=== PATIENT | male | born 1960 | race Caucasian/White ===

== ENCOUNTER 2019-08-02 15:38 | Emergency (ER) | payer BC, SELFPAY ==
[2019-08-02 15:45] VITALS: BP 140/78; PULSE 78; RESP 16; TEMP 37.1; O2SAT 95
--- NOTE | 2019-08-02 15:55 | ED.URI ---
HPI - URI/Sore Throat General Chief Complaint: Upper Respiratory Infection Stated Complaint: COUGH/FEVER/CHILLS/SWEATS Time Seen by Provider: 08/02/19 15:55 Source: patient and RN notes reviewed Mode of arrival: ambulatory Limitations: no limitations History of Present Illness HPI Narrative: 59-year-old male who presents to [facility] care with complaints of headache, fever, cough, body aches since Saturday.Patient states that he has been taking Ibuprofen for his fever and body aches which he rates as a 7/10 and describes as generalized body pain. Patient denies any shortness of breath, states that cough is dry, sinus congestion and nasal drainage is also present. Patient states that he just returned from being out of town on business trip and symptoms have progressively worsened. He states that he did not take flu shot this year. MD elicited complaint: fever, cough and rhinorrhea Onset (ago): day(s) (saturday afternoon) Consistency: progressively worsening Description of mucous: clear Able to tolerate fluids by mouth: Yes Exacerbating factors: nothing Relieving factors: nothing Context: recent travel Associated symptoms: fever, chills, headache, rhinorrhea and cough Treatments prior to arrival: ibuprofen Related Data Allergies Allergy/AdvReac Type Severity Reaction Status Date / Time cephalexin Allergy Intermediate RASH Verified 08/02/19 15:48 Review of Systems Review of Systems: Narrative: CONSTITUTIONAL:Positive fever, chills, or sweats. EYES: Denies visual changes, redness, or discharge. ENT: Positive rhinorrhea, congestion,no sore throat, or otalgia. CARDIOVASCULAR: Denies chest pain, palpitations, or edema. RESPIRATORY:Positive cough denies dyspnea. GASTROINTESTINAL: Denies abdominal pain, nausea, vomiting, or diarrhea. GENITOURINARY: Denies dysuria or hematuria. SKIN: Denies rash or itching. MUSCULOSKELETAL: Denies back pain, joint pain,Body aches NEUROLOGIC: Positive headache,Denies numbness, or weakness. PSYCHIATRIC: Denies anxiety or depression. All systems reviewed & are unremarkable except as noted in HPI and below PMFSH Past Medical History Medical History (Updated 08/04/19 @ 11:15 by France Edward NP) Arthritis Surgical History Surgical History (Updated 08/04/19 @ 11:15 by France Edward NP) Previous back surgery Social History Social History (Updated 08/04/19 @ 11:15 by France Edward NP) Smoking status: Never smoker Living arrangements: with family Gender identity (if verbalized by the patient): Male Comments At time of signature, agree with nursing past medical, surgical, social and family history. There is no relevant family history pertinent to the presenting complaint Exam Narrative: Exam Narrative: GENERAL:Ill-appearing, well-nourished, and in no acute distress. HEAD: Normocephalic, atraumatic. EYES: PERRLA and EOMI. ENT: Nares red, clear rhinorrhea or epistaxis. Mucous membranes moist.T<s normal with good light reflex, throat red with no lesions, exudate or tonsil swelling, post nasal drainage noted NECK: Supple.no lymphadenopathy CHEST: Clear to auscultation. No respiratory distress.dry cough deniesany dyspna SAO2 95% on room air HEART: Regular rate and rhythm. No murmur heard. Normal peripheral pulses. ABDOMEN: Soft, nontender, nondistended, normal active bowel sounds. EXTREMITIES: Normal range of motion. No edema. SKIN: Warm, dry, no rash. NEURO: No focal deficits. Alert and oriented x3. Course Vital Signs Vital signs: Vital Signs Temperature 37.1 C 08/02/19 15:45 Pulse Rate 78 08/02/19 15:45 Respiratory Rate 16 08/02/19 15:45 Blood Pressure 140/78 08/02/19 15:45 Pulse Oximetry 95 08/02/19 15:45 Temperature 37.1 C 08/02/19 15:45 Pulse Rate 78 08/02/19 15:45 Respiratory Rate 16 08/02/19 15:45 Blood Pressure 140/78 08/02/19 15:45 Pulse Oximetry 95 08/02/19 15:45 MDM - URI/Sore Throat Differential Diagnosis Differential diagnosi
== END 2019-08-02 16:19 | disposition home or self-care (01) ==
PROVIDERS: Emergency Provider Registered Nurse; PCP Family Medicine
DX: J11.1 Influenza due to unidentified influenza virus with other respiratory manifestations (principal)
CPT/HCPCS: 87804; 99213; G0463

== ENCOUNTER 2022-04-24 10:47 | Outpatient (CLI) | payer BC, SELFPAY ==
[2022-04-24 11:09] LABS: Basophils Percent Auto 0.9 % (0.2-1.2); Eosinophils Absolute Auto 0.2 K/mm3 (0-0.3); Eosinophils Percent Auto 5.6 % (0-4.4); Hematocrit 48.2 % (42.0-52.0); Immature Granulocyte Absolute 0.02 K/mm3 (0.00-0.031); Immature Granulocyte Percent A 0.6 % (0-0.5); Lymphocytes Percent Auto 34.4 % (18.3-44.2); Mean Corpuscular HGB Conc 33.2 g/dl (32-36); Mean Corpuscular Hemoglobin 31.6 pg (26-34); Mean Corpuscular Volume 95.3 fl (80-100); Mean Platelet Volume 9.7 fl (7.4-10.4); Monocytes Absolute Auto 0.6 K/mm3 (0.1-0.6); Monocytes Percent Auto 17.8 % (2.6-8.5); Neutrophils Absolute Auto 1.3 K/mm3 (1.3-6.7); Neutrophils Percent Auto 40.7 % (45.5-73.1); Platelet Count Result 203 k/mm3 (150-375); Red Blood Count 5.06 M/mm3 (4.6-6.20); Red Cell Distribution Width 12.5 % (11.5-14.5); White Blood Count 3.2 K/mm3 (4.5-10.0)
[2022-04-24 11:23] LABS: Alanine Aminotransferase 51 U/L (6-50); Albumin Level 4.3 g/dL (3.5-5.1); Alkaline Phosphatase 79 U/L (38-126); Anion Gap 8 mmol/L (8-16); Aspartate Amino Transferase 54 U/L (17-59); Bilirubin,Total 0.7 mg/dL (0.2-1.3); Blood Urea Nitrogen 15 mg/dL (9-20); Calcium 8.7 mg/dL (8.4-10.2); Carbon Dioxide 27 mmol/L (22-30); Chloride 104 mmol/L (98-107); Cholesterol 192 mg/dL (0-200); Estimated Glomerular Filt Rate > 60; Glucose 96 mg/dL (65-110); HDL Direct 48 mg/dL; Potassium 4.4 mmol/L (3.4-5.0); Sodium 139 mmol/L (137-145); Triglycerides 131 mg/dL (<150)
[2022-04-24 11:33] LABS: LDL Cholesterol Direct 106 mg/dL
[2022-04-24 11:53] LABS: Prostate Specific Antigen 1.1 ng/mL (< OR = 4.0)
== END 2022-04-24 10:48 | disposition home or self-care (01) ==
LOC: ANHLAB 10:50
PROVIDERS: PCP Family Medicine; Visit Provider Emergency Medicine
DX: Z13.220 Encounter for screening for lipoid disorders (principal); Z12.5 Encounter for screening for malignant neoplasm of prostate; Z79.899 Other long term (current) drug therapy
CPT/HCPCS: 36415; 80053; 80061; 84153; 85025; G0103

== ENCOUNTER 2023-03-01 01:45 | Day surgery (SDC) | payer BC, SELFPAY ==
[2023-02-27 13:00] VITALS: BMI 24.6
--- NOTE | 2023-02-27 13:16 | PC.NURSE ---
Report to the Outpatient Waiting Room, entrance under the green pavilion located off [facility], at time __11:30AM on date _03/01/23 . Planned Procedure Time: __1:30PM . Time changes happen often and if your time is changed the preop area will call you the afternoon before. - You and your visitor will be asked to self-screen and do not enter if you have any COVID symptoms. - A mask is optional within the hospital at this time. Patients may have clear liquids (water, carbonated beverages, clear teas, apple juice) until 3 hours prior to surgery with a maximum of 20 ounces. - No food from midnight until time of surgery Take the following medications with a SIP of water the morning of surgery: ___NONE DO NOT STOP ANY OF YOUR OTHER PRESCRIPTION MEDICATIONS PRIOR TO SURGERY ?EXCEPT THE FOLLOWING Medications to discontinue per physician __HOLD ALL VITAMINS/SUPPLEMENTS 3 DAYS PRE-OP Date to take last dose___02/26/23 Please no make-up, nail vietnamese, hairspray, perfume, deodorant, or body powder the day of surgery. No jewelry (including any body piercings) or valuables the day of surgery, leave them at home. Please take a shower or bath the night before, or the morning of, surgery with an antibacterial soap. Wear comfortable, loose fitting clothing. Children are encouraged to wear pajamas. - Jewelry must be removed prior to entering the operating room. Rings and piercings that are not removed may be cut off. - The hospital will not accept responsibility for valuables. - Please leave all valuables, including medications, at home the day of surgery. If you are going home after surgery, a licensed route sales driver must drive you home. - NO public transportation without another adult if you receive anesthesia. - We recommend that an adult stay with you for 24 hours following discharge. - We also recommend that you do not drive, make important decision, drink alcoholic beverages, or take any drugs that were not prescribed by your health care provider for at least 24 hours after your discharge time. Follow any additional instructions given to you from your surgeon. If you or anyone in your household have experienced Covid symptoms in the past week, please notify your surgeon or the nurse liaison at the phone number below for possible testing. Telephone instructions given to __PATIENT and asked if any additional questions and then verbalized understanding. Patient advised to call surgeon office or pre surgery nurse liaison [phone] if any additional questions.
--- NOTE | 2023-02-28 09:57 | P.PNAN_ITS ---
Anes - Initial Pre Proc Eval Procedure: Operation Date: 03/01/23 13:30 Proposed Procedures p Jas Modification of Pb Right Foot - Se Roldan DPM Date/Time: 02/28/23 09:57 Surgeon: Se Roldan DPM Pre Op Diagnosis: Hallux Valgus Right Foot Patient Data Age: 62 Gender: M Height: 1.78 m Weight: 78 kg Allergies Allergy/AdvReac Type Severity Reaction Status Date / Time cephalexin Allergy Intermediate RASH Verified 03/01/23 12:23 Home Medications Medication Instructions Recorded Confirmed Type cholecalciferol (vitamin D3) 50 50 mcg PO DAILY 02/27/23 02/27/23 History mcg (2,000 unit) capsule potassium 99 mg tablet 99 mg PO DAILY 02/27/23 02/27/23 History Patient hx anesthesia problems: none Family hx anesthesia problems: none Results Review: All pre-operative results and documents have been reviewed as part of the pre- operative evaluation. [facility] Past Medical History Medical History Arthritis Surgical History Surgical History Previous back surgery Social History Social History Smoking status: Never smoker Alcohol intake: current Drinks per week: 6 Substance use: never Living arrangements: with family Additional living arrangements comments: Gender identity (if verbalized by the patient): Male Spiritual care concerns: No Anes - Eval Final PreProcedure Day of Procedure 02/28/23 09:57 Patient weight: normal Heart: regular rate and rhythm Lungs: clear to auscultation and normal air movement Airway: Mallampati scale class II Neurological: alert and oriented Last oral intake: >/= 8 hours ASA classification: II Emergent: no Anesthetic plan: proceed Anesthesia type and monitoring: general GIVS and standard monitoring Results Review: All pre-operative results and documents have been reviewed as part of the pre- operative evaluation. Informed Consent: The patient's anesthetic plan and its attendant risks and benefits were discusse d with the patient/family/POA. Questions were solicited and answers provided to the satisfaction of the patient/family/POA.
[2023-03-01] VITALS (10 sets, daily range): BP systolic 119–145; BP diastolic 83–95; PULSE 50–98; RESP 12–18; TEMP 36.4–36.6; O2SAT 97–100
--- NOTE | 2023-03-01 11:39 | PM.IMHP ---
H&P: HPI History of Present Illness Date/Time: 03/01/23 11:39 Chief Complaint: Patient presents with painful right first MPJ that has failed conservative treatment. Review of Systems Review of Systems: All systems reviewed & are unremarkable except as noted in HPI and below PMFSH Past Medical History Medical History Arthritis Surgical History Surgical History Previous back surgery Social History Social History Smoking status: Never smoker Alcohol intake: current Drinks per week: 6 Substance use: never Living arrangements: with family Additional living arrangements comments: Gender identity (if verbalized by the patient): Male Spiritual care concerns: No Meds Home Medications and Allergies Home Medications Medication Instructions Recorded Confirmed Type cholecalciferol (vitamin D3) 50 50 mcg PO DAILY 02/27/23 02/27/23 History mcg (2,000 unit) capsule potassium 99 mg tablet 99 mg PO DAILY 02/27/23 02/27/23 History Allergies Allergy/AdvReac Type Severity Reaction Status Date / Time cephalexin Allergy Intermediate RASH Verified 02/27/23 12:57 Exam Const: General: cooperative, healthy appearing, comfortable and no acute distress Cardio: Peripheral pulses: Peripheral pulses 2+ throughout Extrem: General: normal exam except as noted Right lower extremity: full ROM (decreased ROM at the right 1st MPJ), normal capillary refill and foot Details: abnormal ROM of toe (right 1st MPJ) Details: pain with passive ROM Assessment and Plan Assessment and plan (1) Hallux limitus of right foot: Code(s): M20.5X1 - Other deformities of toe(s) (acquired), right foot Status: Acute Assessment and Plan: [place] procedure right foot.
--- NOTE | 2023-03-01 12:08 | WPDHPUPDATE1 ---
History and Physical Update Update Date/Time: 03/01/23 12:08 History and Physical has been reviewed, including an updated exam of the patient. There are NO changes in the patient's condition. Risks, benefits, and alternatives have been discussed and questions answered. Patient agrees to proceed with procedure.
[2023-03-01] MEDS: LACTATED RINGERS 1,000 ML 30 ML IV CONT (12:23)
[2023-03-01] MEDS: CLINDAMYCIN 900 MG/D5W 50 ML 900 MG/50 ML PIGGYBACK 50 MG IVPB (13:18)
[2023-03-01] MEDS: BUPivacaine HCL 0.5% PF 30 ML VIAL 10 ML INFILTRATE (13:39)
--- NOTE | 2023-03-01 14:13 | P.OP_ITS ---
Procedure Note - Detailed Date of Procedure 03/01/23 Pre-op Diagnosis Hallux Valgus Right Foot Post-op Diagnosis Same Procedure Performed [facility] Surgeon Se Roldan DPM Practice Specialist None Anesthesia General Description of Procedure Under monitored sedation patient was brought into the operating room, placed on the operating table. Following MAC anesthesia local anesthesia was obtained around the 1 st metatarsal base using 2% Lidocaine plain and 0.5% Marcaine plain. The foot was then scrubbed, prepped, and draped in the usual aseptic manner. Esmark bandage was used to exsanguinate the patient?s left foot and the ankle tourniquet inflated to 250mm. Attention was then directed to the dorsal aspect of the 1 st metatarsal cunieform jont of the left foot where a linear incision was made medial to the extensor tendon. It was deepened down to the level of the bone using sharp and blunt dissection with great care taken to identify and retract all vital, neural and vascular structures. A linear capsulotomy was made and the head of the exostosis was freed of its soft tissue attachments. The eminence was resected using bone saw. A osteotomy was made from dorsal distal to proximal plantar. It was fixated with a [employer] easy clip staple. It was tested and noted to be stable Rough edges were removed with the bone bur. Wound was then flushed with copious amounts of sterile normal saline. Capsule and deep tissue were repaired using 3-0 vicryl, the skin was repaired using 4-0 nylon. The wounds were then covered with a dry, sterile compressive dressing consisting of Steristrips, antibiotic ointment, Adaptic, 4 x 4?s, Cesar and Coban. The ankle tourniquet was deflated and prompt capillary refill response noted to all digits of the right foot. Patient tolerated procedure and anesthesia well. He was transferred to the recovery room with vital signs stable and neurovascular status intact to all digits of the right foot. Following a period of post-operative monitoring the patient will be discharged home with written and oral post-operative instructions. Drains No Packing No Pathology None sent Complications No immediate complications Condition Stable Disposition PACU
== END 2023-03-01 16:19 | disposition home or self-care (01) ==
PROVIDERS: PCP Emergency Medicine; Visit Provider Podiatrist Foot & Ankle Surgery
PROC: (CPT 28299; principal; 2023-03-01 13:30)
DX: M20.5X1 Other deformities of toe(s) (acquired), right foot (principal)
CPT/HCPCS: 28296; A9270; C1713; J1100; J2250; J2405; J2704; J3010; J7120

== ENCOUNTER 2024-01-16 12:12 | Outpatient (CLI) | payer BC, SELFPAY ==
[2024-01-16 12:36] LABS: Basophils Absolute Auto 0.1 K/mm3 (0.0-0.1); Basophils Percent Auto 0.9 % (0.2-1.2); Eosinophils Absolute Auto 0.2 K/mm3 (0-0.3); Hematocrit 50.8 % (42.0-52.0); Hemoglobin 17.1 g/dL (14.0-18.0); Immature Granulocyte Absolute 0.02 K/mm3 (0.00-0.031); Immature Granulocyte Percent A 0.4 % (0-0.5); Lymphocytes Absolute Auto 1.33 K/mm3 (0.9-3.2); Mean Corpuscular HGB Conc 33.7 g/dl (32-36); Mean Corpuscular Hemoglobin 31.5 pg (26-34); Mean Corpuscular Volume 93.6 fl (80-100); Mean Platelet Volume 9.8 fl (7.4-10.4); Monocytes Absolute Auto 0.8 K/mm3 (0.1-0.6); Monocytes Percent Auto 14.5 % (2.6-8.5); Neutrophils Percent Auto 56.2 % (45.5-73.1); Platelet Count Result 200 k/mm3 (150-375); Red Blood Count 5.43 M/mm3 (4.6-6.20); Red Cell Distribution Width 12.3 % (11.5-14.5); White Blood Count 5.3 K/mm3 (4.5-10.0)
[2024-01-16 12:48] LABS: Alanine Aminotransferase 52 U/L (6-50); Albumin Level 4.5 g/dL (3.5-5.1); Alkaline Phosphatase 69 U/L (38-126); Anion Gap 11 mmol/L (4-12); Aspartate Amino Transferase 43 U/L (17-59); Blood Urea Nitrogen 22 mg/dL (9-20); Calcium 9.1 mg/dL (8.4-10.2); Carbon Dioxide 24 mmol/L (22-30); Chloride 101 mmol/L (98-107); Cholesterol 224 mg/dL (0-200); Estimated Glomerular Filt Rate > 60; Glucose 102 mg/dL (65-110); HDL Direct 48 mg/dL; Potassium 4.3 mmol/L (3.4-5.0); Sodium 136 mmol/L (137-145); Triglycerides 251 mg/dL (<150)
[2024-01-16 12:59] LABS: LDL Cholesterol Direct 138 mg/dL
[2024-01-16 13:17] LABS: Prostate Specific Antigen 1.2 ng/mL (< OR = 4.0)
== END 2024-01-16 12:13 | disposition home or self-care (01) ==
LOC: ANHLAB 12:16
PROVIDERS: PCP Emergency Medicine; Visit Provider Emergency Medicine
DX: Z12.5 Encounter for screening for malignant neoplasm of prostate (principal); Z13.220 Encounter for screening for lipoid disorders; Z79.899 Other long term (current) drug therapy
CPT/HCPCS: 36415; 80053; 80061; 84153; 85025; G0103

== ENCOUNTER 2024-06-01 00:13 | Day surgery (SDC) | payer BC, SELFPAY ==
[2024-05-14 14:48] VITALS: BMI 24.4
[2024-06-01 09:01] VITALS: BP 127/85; PULSE 75; RESP 16; TEMP 35.7; O2SAT 99; BMI 23.2
[2024-06-01] MEDS: LACTATED RINGERS 1,000 ML 150 ML IV CONT (09:09)
--- NOTE | 2024-06-01 09:30 | WPDANESEPPF ---
Anes - Initial Pre Proc Eval Procedure: Operation Date: 06/01/24 10:00 Proposed Procedures p Colonoscopy - Denilson Serrano MD Date/Time: 06/01/24 09:30 Surgeon: Denilson Serrano MD Pre Op Diagnosis: Personal Hx. of colon Polyps Patient Data Age: 63 Gender: M Height: 1.78 m Weight: 73.5 kg Last Vital Signs Temp 35.7 C L 06/01/24 09:01 Pulse 75 06/01/24 09:01 Resp 16 06/01/24 09:01 BP 127/85 06/01/24 09:01 Pulse Ox 99 06/01/24 09:01 O2 Del Method Room Air 06/01/24 09:01 Allergies Allergy/AdvReac Type Severity Reaction Status Date / Time cephalexin Allergy Intermediate RASH Verified 06/01/24 09:00 Home Medications Medication Instructions Recorded Confirmed Type No Home Medications 05/14/24 05/14/24 History Patient hx anesthesia problems: none Family hx anesthesia problems: none Results Review: All pre-operative results and documents have been reviewed as part of the pre-operative evaluation. [facility] Past Medical History Medical History Arthritis Surgical History Surgical History Previous back surgery Social History Social History Smoking status: Former smoker Alcohol intake: current Drinks per week: 6 Alcohol use details: BEER Substance use: never Substance use type: does not use Living arrangements: with family Additional living arrangements comments: Gender identity (if verbalized by the patient): Male Spiritual care concerns: No Anes - Eval Final PreProcedure Day of Procedure 06/01/24 09:30 Patient weight: normal Heart: regular rate and rhythm Lungs: clear to auscultation Airway: Mallampati scale class II Neurological: alert and oriented Last oral intake: >/= 8 hours ASA classification: II Emergent: no Anesthetic plan: proceed Anesthesia type and monitoring: general GIVS and standard monitoring Results Review: All pre-operative results and documents have been reviewed as part of the pre-operative evaluation. Informed Consent: The patient's anesthetic plan and its attendant risks and benefits were discussed with the patient/family/POA. Questions were solicited and answers provided to the satisfaction of the patient/family/POA.
--- NOTE | 2024-06-01 09:35 | PM.HPGS ---
History of Present Illness History of Present Illness Consent: Risks, benefits, and alternatives have been discussed and questions answered. Patient agrees to proceed with procedure. Chief complaint: Personal Hx. of colon Polyps Narrative: Hima Interiano is a 63 year old male with colon polyp 5 years ago Review of Systems Review of Systems: All systems reviewed & are unremarkable except as noted in HPI and below PMFSH Past Medical History Medical History (Updated 06/01/24 @ 09:38 by Denilson Serrano MD) Arthritis Colon polyp Surgical History Surgical History Previous back surgery Social History Social History Smoking status: Former smoker Alcohol intake: current Drinks per week: 6 Alcohol use details: BEER Substance use: never Substance use type: does not use Living arrangements: with family Additional living arrangements comments: Gender identity (if verbalized by the patient): Male Spiritual care concerns: No Meds Home Medications and Allergies Home Medications Medication Instructions Recorded Confirmed Type No Home Medications 05/14/24 05/14/24 History Allergies Allergy/AdvReac Type Severity Reaction Status Date / Time cephalexin Allergy Intermediate RASH Verified 06/01/24 09:00 Vital Signs Vital Signs - 24 hr 06/01/24 09:01 Temperature 96.2 F L Pulse Rate 75 Respiratory Rate 16 Blood Pressure 127/85 Pulse Oximetry 99 Oxygen Delivery Room Air Exam Const: General: comfortable and no acute distress HENMT: Face/Nose/Sinus: Normal nares present Eyes: General: appearance normal, both eyes and all related structures Neck: Neck: no JVD Resp: Auscultation: clear to auscultation bilaterally Cardio: Rate: regular rate Rhythm: regular rhythm GI: Inspection: non-distended GI Palp: Yes Soft to palpation Skin: General skin exam: normal color Neuro: General: gait normal Speech: normal speech Extrem: General: normal to inspection Psych: Mental Status: mental status grossly normal Assessment and Plan Assessment and plan (1) Colon polyp: Code(s): K63.5 - Polyp of colon Status: Acute Assessment and Plan: colonoscopy
[2024-06-01 09:51] VITALS: BP 127/79; PULSE 65; RESP 17; O2SAT 100
[2024-06-01 10:01] VITALS: BP 139/106; PULSE 58; RESP 17; O2SAT 100
[2024-06-01 10:11] VITALS: BP 147/95; PULSE 53; RESP 18; O2SAT 100
== END 2024-06-01 10:26 | disposition home or self-care (01) ==
PROVIDERS: PCP Emergency Medicine; Visit Provider Internal Medicine Gastroenterology
PROC: 0DJD8ZZ Inspection of Lower Intestinal Tract, Via Natural or Artificial Opening Endoscopic (ICD-10-PCS; CPT 45378; principal; 2024-06-01 10:00)
DX: Z12.11 Encounter for screening for malignant neoplasm of colon (principal); D12.3 Benign neoplasm of transverse colon; K63.5 Polyp of colon; K57.30 Diverticulosis of large intestine without perforation or abscess without bleeding; K64.8 Other hemorrhoids
CPT/HCPCS: 45385; 88305; J2003; J2704; J7120

== ENCOUNTER 2025-02-26 07:26 | Outpatient (CLI) | payer BC, SELFPAY ==
[2025-02-26 08:43] LABS: Hematocrit 51.4 % (42.0-52.0); Hemoglobin 16.9 g/dL (14.0-18.0); Immature Granulocyte Percent A 0.6 % (0-0.5); Lymphocytes Absolute Auto 1.31 K/mm3 (0.9-3.2); Mean Corpuscular HGB Conc 32.9 g/dl (32-36); Mean Corpuscular Hemoglobin 30.6 pg (26-34); Mean Corpuscular Volume 93.1 fl (80-100); Nucleated Red Blood Cells Absolute Auto 0.000 K/mm3 (0.0-0.012); Nucleated Red Blood Cells Perc 0.0 % (0.0-0.2); Platelet Count Result 210 k/mm3 (150-375); Red Blood Count 5.52 M/mm3 (4.6-6.20); White Blood Count 4.9 K/mm3 (4.5-10.0)
[2025-02-26 09:07] LABS: Alanine Aminotransferase 47 U/L (6-50); Albumin Level 4.2 g/dL (3.5-5.1); Alkaline Phosphatase 63 U/L (38-126); Anion Gap 9 mmol/L (4-12); Aspartate Amino Transferase 48 U/L (17-59); Bilirubin,Total 0.8 mg/dL (0.2-1.3); Blood Urea Nitrogen 18 mg/dL (9-20); Calcium 9.0 mg/dL (8.4-10.2); Carbon Dioxide 24 mmol/L (22-30); Chloride 105 mmol/L (98-107); Cholesterol 239 mg/dL (0-200); Estimated Glomerular Filt Rate > 60; Glucose 98 mg/dL (65-110); HDL Direct 46 mg/dL; Potassium 4.0 mmol/L (3.4-5.0); Sodium 138 mmol/L (137-145); Total Protein 6.9 g/dL (6.3-8.2); Triglycerides 129 mg/dL (<150)
[2025-02-26 09:43] LABS: Prostate Specific Antigen 0.9 ng/mL (< OR = 4.0)
== END 2025-02-26 07:27 | disposition home or self-care (01) ==
LOC: ANHLAB 07:29
PROVIDERS: PCP Physician Assistant; Visit Provider Physician Assistant
DX: Z00.00 Encounter for general adult medical examination without abnormal findings (principal); E78.2 Mixed hyperlipidemia; Z12.5 Encounter for screening for malignant neoplasm of prostate
CPT/HCPCS: 36415; 80053; 80061; 84153; 85025; G0103

== ENCOUNTER 2025-03-02 15:24 | Outpatient (CLI) | payer BC, SELFPAY ==
--- NOTE | ~2025-03-02 | XR_ITS ---
EXAM/ PROCEDURE: XR hip BI 2V w AP pelvis - 03/02/2025 15:32 CDT HISTORY: 64 years old Male with Myalgia, other site COMPARISON: None available TECHNIQUE: Three view(s) FINDINGS/ IMPRESSION: There are no fractures or dislocations.Joint space narrowing, subchondral sclerosis, subchondral cyst formation and osteophyte formation, compatible with mild osteoarthritis. Partially visualized posterior spinal fusion hardware. Reviewed, dictated and finalized at location N. ADDENDUM: 03/16/25 1148 Mild osteoarthritis of both hip joints.
== END 2025-03-02 15:25 | disposition home or self-care (01) ==
LOC: MICIMG 15:26
PROVIDERS: PCP Physician Assistant; Visit Provider Physician Assistant
DX: M79.10 Myalgia, unspecified site (principal); Z98.1 Arthrodesis status
CPT/HCPCS: 73521

== ENCOUNTER 2025-05-26 09:28 | Outpatient (CLI) | payer BC, SELFPAY ==
--- OUTSIDE RECORDS SUMMARY | 2025-05-26 10:08 | XMS_ITS | Clinical Summary ---
Author Organization [facility] Address [address] [place] [address] Care Team Providers Care Car Icer Name Role Phone Loida Chun MD Primary Care Provider [phone] Allergies Active Allergy Reactions Criticality Noted Date Comments Cephalexin Rash Medium 05/29/2018 Medications clobetasol (TEMOVATE) 0.05 % cream Apply 1 application topically as needed. Active cholecalciferol , vitamin D3, (VITAMIN D3 ORAL) Take by mouth daily Active Active Problems Problem Noted Date Diagnosed Date S/P lumbar spinal fusion 07/29/2018 Assessment & Plan (07/12/2021 2:10 PM PAY AGENT): Mr. Interiano is clinically doing well after L4-5 decompression and fusion without any significant back pain or leg symptoms. He had some loosening the hardware at L5 which seems to the have filled than on the current x-ray. He is 3 years out his fusion. We will discharge him from clinic, but I would be happy to see him back at any point on an as-needed basis if questions or problems arise. Assessment & Plan (08/17/2020 2:43 PM PAY AGENT): Mr. Interiano has mild recurrent symptoms following a injury. He is improving with conservative treatments. He has some residual spondylolisthesis at L4-5 and adjacent level disc space collapse at L3-4. Will continue to observe. He will continue his daily exercises and discussed activities he should avoid including heavy lifting/pushing. Patient has an appointment in a year's time and will re- evaluate then. Assessment & Plan (07/19/2020 4:17 PM PAY AGENT): Mr. Interiano is clinically doing well after posterior lumbar decompression and fusion at L4-5. He has some residual spondylolisthesis at this level. I plan to see him back in 1 year's time with AP and flexion-extension lumbar spine films at that time. If he has no instability, hardware loosening or symptoms then I will discharge him from clinic at that time. Assessment & Plan (07/14/2019 2:10 PM PAY AGENT): Mr. Interiano is clinically doing well after lumbar decompression and fusion at L4-5. He has no back pain or radicular symptoms. He does not have of solid fusion posterolateral recesses but has no loosening of the hardware. He may be developing an interbody fusion at L4-5. I plan to see him back in one year's time with AP and lateral lumbar spine films at that time. He will resume all of his normal activities. He is considering a trip to [place] the spring. Assessment & Plan (09/02/2018 12:16 PM PAY AGENT): The patient is doing very well overall. The patient feels good and is pleased with his results. PLAN: 1. After 6 weeks, start increasing activity as tolerated. Start home exercise program 2. May start to wean off back brace at this time over the next 3-4 weeks. 3. Use Neosporin bid to incision for 10 days. 4. May consume low sodium V8 or Coconut water prior to bedtime to help with leg spasms at night. 5. After 6 weeks, patient may resume NSAIDs, may increase activity as tolerated, wean off bone growth stimulator and brace. WORK STATUS: 1. RETURN TO WORK: No restrictions FOLLOW UP APPT: With Dr. Garland 4.5 months with Flexion/Extension /Lumbar spine films and Vitamin D. Assessment & Plan (07/29/2018 10:37 AM PAY AGENT): PLAN: 1. Reyse have been removed. Steristrips applied. Appropriate skin care was reviewed with patient. 2. Continue activity restrictions as outlined prior to surgery. 3. Renew medications: none. 4. Continue LSO brace. WORK STATUS: 1. OFF WORK (sedentary) FOLLOW UP APPT: With Jennifer Vides NP on September 022018 with Lumbar Flexion/Extension spine films. Resolved Problems Problem Noted Date Diagnosed Date Resolved Date Lumbar stenosis with neurogenic claudication 8 07/12/2021 Overview (05/29/2018): Referred for evaluation of lumbar stenosis at L45. Assessment & Plan (01/13/2019 11:12 AM CDT): Mr. Interiano is doing very well after lumbar decompression fusion at L4-5. He denies any leg radiculopathy or claudication symptoms. Plan to see him back in 6 months time with AP and lateral lumbar spine films at that time. Surgical History Surgery Date Site/Laterality Comments COLONOSCOPY LUMBAR FUSION 07/01/2018 - 07/31/2018 L4-5 PSF ([facility]) Medical History Medical History Date Comments Lumbar stenosis with neurogenic claudication Psoriasis of scalp ED (erectile dysfunction) Social History Tobacco Use Types Packs/Day Years Used Date Smoking Tobacco: Never Smokeless Tobacco: Never Alcohol Use Standard Drinks/Week Comments Yes 0 (1 standard drink = 0.6 oz pur e alcohol) 6 per week PHQ-2 Answer Date Recorded PHQ-2 Score 0 09/02/2018 Sex and Gender Information Value Date Recorded Sex Assigned at Not on file Legal Sex Male 1:23 AM PAY AGENT Gender Identity Not on file Sexual Orientation Not on file 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 Not on file Not on file Last Filed Vital Signs Vital Sign Reading Time Taken Comments Blood Pressure 166/94 08/17/2020 2:37 PM PAY AGENT Pulse 59 08/17/2020 2:37 PM PAY AGENT Temperature 36.7 C (98.1 F) 07/29/2018 10:10 AM PAY AGENT Respiratory Rate 12 07/14/2020 11:55 AM PAY AGENT Oxygen Saturation 98% 07/22/2018 7:55 AM PAY AGENT Inhaled Oxygen Concentration - - Weight 77.7 kg (171 lb 3.2 oz) 07/14/2020 11:55 AM PAY AGENT Height 177.8 cm (5' 10) 07/14/2020 11:55 AM PAY AGENT Body Mass Index 24.56 07/14/2020 11:55 AM PAY AGENT Plan of Treatment Not on file Medical Devices Implanted Type Area Electronic Systems Technician Device Identifier Shelf Expiration Date Model / Serial / Lot [employer] [id number] Inqu Paste Mix Plus Chain Forming Machine Operator 10cc Bone Graft Hyaluronic Acid Poly - [id number] Implanted:Qty: 1 on 07/21/2018 by Hcetor Garland MD at [facility] N/A: Spine Lumbar [employer] 04/10/2020 [id number] / / [id number] Core Link [id number] [place] 7mm 40mm Spine Pedicle Screw Bone Nonsterile 5500 Series - [id number] Implanted:Qty: 4 on 07/21/2018 by Hector Garland MD at [facility] N/A: Spine Lumbar Core Link [id number] / / Core Link [id number] [place] Screw Set 5500 Series - [id number] Implanted:Qty: 4 on 07/21/2018 by Hector Garland MD at [facility] N/A: Spine Lumbar Core Link [id number] / / Core Link [id number] [place] 5.5mm 40mm Line Prebent Osiel Spinal Nonsterile 5500 Series - [id number] Implanted:Qty: 2 on 07/21/2018 by Hector Garland MD at [facility] N/A: Spine Lumbar Core Link [id number] / / Insurance [place] [address] [facility] Advance Directives For more information, please contact: [phone] * Full Code (Latest Code Status on File) Date Activated Date Inactivated Comments 07/21/2018 11:09 AM 07/22/2018 5:08 PM Care Teams Car Icer Relationship Specialty Start Date End Date Loida Chun MD [address] [address] PCP - General Family Medicine 02/28/18
[2025-05-26 12:02] LABS: Alanine Aminotransferase 68 U/L (6-50); Albumin Level 4.2 g/dL (3.5-5.1); Alkaline Phosphatase 67 U/L (38-126); Aspartate Amino Transferase 60 U/L (17-59); Bilirubin,Total 0.7 mg/dL (0.2-1.3); Total Protein 6.8 g/dL (6.3-8.2)
[2025-05-26 12:03] LABS: Creatine Kinase 503 U/L (55-170)
== END 2025-05-26 09:29 | disposition home or self-care (01) ==
PROVIDERS: PCP Physician Assistant; Visit Provider Physician Assistant
DX: E78.2 Mixed hyperlipidemia (principal)
CPT/HCPCS: 36415; 80076; 82550

== ENCOUNTER 2025-06-20 11:36 | Emergency (ER) | payer BC, SELFPAY ==
--- OUTSIDE RECORDS SUMMARY | 2025-06-20 11:38 | XMS_ITS | Clinical Summary ---
Author Organization [facility] Address [address] [place] [address] Care Team Providers Care Supervisor Sample Name Role Phone Loida Chun MD Primary Care Provider [phone] Allergies Active Allergy Reactions Criticality Noted Date Comments Cephalexin Rash Medium 05/29/2018 Medications clobetasol (TEMOVATE) 0.05 % cream Apply 1 application topically as needed. Active cholecalciferol , vitamin D3, (VITAMIN D3 ORAL) Take by mouth daily Active Active Problems Problem Noted Date Diagnosed Date S/P lumbar spinal fusion 07/29/2018 Assessment & Plan (07/12/2021 2:10 PM SOUND RECORDING TECHNICIAN): Mr. Interiano is clinically doing well after [...] arise. Assessment & Plan (08/17/2020 2:43 PM SOUND RECORDING TECHNICIAN): Mr. Interiano has mild recurrent symptoms following [...] then. Assessment & Plan (07/19/2020 4:17 PM SOUND RECORDING TECHNICIAN): Mr. Interiano is clinically doing well after [...] time. Assessment & Plan (07/14/2019 2:10 PM SOUND RECORDING TECHNICIAN): Mr. Interiano is clinically doing well after [...] activities. He is considering a trip to [place] the spring. Assessment & Plan (09/02/2018 12:16 PM SOUND RECORDING TECHNICIAN): The patient is doing very well overall. [...] D. Assessment & Plan (07/29/2018 10:37 AM SOUND RECORDING TECHNICIAN): PLAN: 1. Reyes have been removed. Steristrips applied. 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 Not on file Not on file Last Filed Vital Signs Vital Sign Reading Time Taken Comments Blood Pressure 166/94 08/17/2020 2:37 PM SOUND RECORDING TECHNICIAN Pulse 59 08/17/2020 2:37 PM SOUND RECORDING TECHNICIAN Temperature 36.7 C (98.1 F) 07/29/2018 10:10 AM SOUND RECORDING TECHNICIAN Respiratory Rate 12 07/14/2020 11:55 AM SOUND RECORDING TECHNICIAN Oxygen Saturation 98% 07/22/2018 7:55 AM SOUND RECORDING TECHNICIAN Inhaled Oxygen Concentration - - Weight 77.7 kg (171 lb 3.2 oz) 07/14/2020 11:55 AM SOUND RECORDING TECHNICIAN Height 177.8 cm (5' 10) 07/14/2020 11:55 AM SOUND RECORDING TECHNICIAN Body Mass Index 24.56 07/14/2020 11:55 AM SOUND RECORDING TECHNICIAN Plan of Treatment Not on file Medical Devices Implanted Type Area Appeals Referee Device Identifier Shelf Expiration Date Model / Serial / Lot [employer] [id number] Inqu Paste Mix Plus Dye House Vat Worker 10cc Bone Graft Hyaluronic Acid Poly - [id number] Implanted:Qty: 1 on 07/21/2018 by Hector Garland MD at [facility] N/A: Spine Lumbar [employer] 04/10/2020 [id number] / / [id number] Core Link [id number] [place] 7mm 40mm Spine Pedicle Screw Bone Nonsterile 5500 Series - [id number] Implanted:Qty: 4 on 07/21/2018 by Hector Garland MD at [facility] N/A: Spine Lumbar Core Link [id number] / / Core Link [id number] [place] Screw Set 5500 Series - [id number] Implanted:Qty: 4 on 07/21/2018 by Hector Garland MD at [facility] N/A: Spine Lumbar Core Link [id number] / / Core Link [id number] [place] 5.5mm 40mm Line Prebent Osiel Spinal Nonsterile 5500 Series - [id number] Implanted:Qty: 2 on 07/21/2018 by Hector Garland MD at [facility] N/A: Spine Lumbar Core Link [id number] / / [place] [address] [facility] TRADITIONAL [facility] Advance Directives For more information, please contact: [phone] * Full Code (Latest Code Status on File) Date Activated Date Inactivated Comments 07/21/2018 11:09 AM 07/22/2018 5:08 PM Care Teams Supervisor Sample Relationship Specialty Start Date End Date Loida Chun MD [address] [address] PCP - General Family Medicine 02/28/18
--- OUTSIDE RECORDS SUMMARY | 2025-06-20 11:38 | XMS_ITS | Patient Health Record ---
Author Organization [facility] Address [address] [place], [place] [id number] Care Team Providers Care Grant Officer Name Role Phone Child Michael Primary Care Provider Unavail able GABE VALDEZ Unavailable [phone] Allergies No Known Allergies Reason For Referral No Information Immunizations Vaccine Route Administration Date Status Comme nts Influenza, high dose seasonal Unknown 04/30/2022 Admini stered Social History Social History Additional Details Category Social Info Options Details Migrated Social History Migrated Social History Smoking Status : Never used tobacco , Alcohol intake : , History of tobacco use : Plan Of Treatment No Information Insurance Providers Payer Name Payer Address Payer Phone Subscriber Number Group Number Insured Name Patient Relationship to Insured Coverage Start Date Coverage End Date [facility] ([facility] ATTN CLAIMS [address] [place] [address] [id number] YI CID Self - patient is the insured
--- OUTSIDE RECORDS SUMMARY | 2025-06-20 11:38 | XMS_ITS | Data Portability ---
[facility] [address] [facility] [address] Care Team Providers Care Olive Packer Name Role Phone ELGIN MURILLO Primary Care Provider [phone] Assessment No assessment recorded. Plan of Treatment Reminders Order Date Submit Date Provider Last Modified By Organization Details Last Modified Time Details Appointments None recorded. Lab lipid panel, serum 2024 025 [facility], [address] [place] [address] [address], [place], [address], 5 12:22:55 CMP, serum or plasma 2024 025 [facility], [facility] [facility] [address], [place], [address], 5 12:16:02 PSA, serum or plasma 2024 025 [facility], [facility] [address], [place], [address], 5 17:13:34 CBC w/ auto diff 2024 025 [facility], [facility] [address], [place], [address], 5 12:16:02 lipid panel, serum 2023 024 [facility], [facility] [address], [place], [address], 4 16:03:47 CMP, serum or plasma 2023 024 [facility], [address], [place], [address], 4 11:39:06 CBC w/ auto diff 2023 024 [facility], [address], [place], [address], 4 16:03:47 PSA, total, serum or plasma 2023 024 [facility], [address], [place], [address], 4 17:01:11 influenza virus A + B + SARS-CoV-2 (COVID19) Ag panel, rapid IA, upper respirator y specimen 2022 023 [email or web address] In-Office Order, Internal Use Only DO Not Attach Compendium DO Not Attach Compendium, Do Not Delete/merge, [id number] 3 15:33:44 Referral physical therapist referral - he will call when ready for appt. 2024 025 [facility], [address], [place], [address], 5 12:20:38 ophthalmol ogist referral - Please contact patient for appt, thanks! 2023 024 [facility], [address], [place], [address], 4 13:10:50 Procedures fluorescei n eye stain (PROC) 2023 024 [email or web address] Not available 5 20:39:13 Surgeries None recorded. Imaging XR, hip + pelvis, bilateral 2024 025 [facility], [address], [place], [address], 5 13:10:36 Medication Orders prednisone 20 mg tablet 2024 025 [facility] #28007, [address] [facility] [address] [place] [address], [id number], 5 05:02:28 propranolo l 20 mg tablet 2024 025 [email or web address] [facility] #77232, [address] [place] [address], [id number], 5 15:33:31 ofloxacin 0.3 % eye drops 2023 025 [facility] #45799, [address] [facility] [address] [place] [address], [id number], 5 15:05:46 propranolo l 20 mg tablet 2023 024 [facility] #66307, [address] [place] [address], [id number], 4 16:55:51 sildenafil 50 mg tablet 2023 024 [email or web address] Not available 4 16:57:56 Zithromax Z-Andrey 250 mg tablet 2022 024 [facility] #72323, [address] [place] [address], [id number], 4 16:08:46 tobramycin 0.3 % eye drops 2022 024 [facility] #90237, [address] [facility] [address] [place] [address], [id number], 4 16:42:09 Patient TargetsNo targets recorded. Patient Instructions Encounter Date Encounter Id Patient Instructions Last Modified By Organization Details Last Modified Time 01/09/2024 [id number] psoriasis: care instructions [email or web address] Not available 01/09/2024 16:55:45 Hima, - Thank you for your visit - Continue your current medications - see handout for back pain, call if persistent despite exercises/stretch es, schedule anti-inflammatory such as ibuprofen 600 mg 3 times daily for 2 weeks - Have your labwork done at your earliest convenience - Your results will be available on the portal with any recommendations, or we will call you with them - Return to clinic in one year, AND as needed. - Call with any concerns Immunization recommendations: - Preventive immunization against shingles (herpes zoster) is recommended to reduce risk of occurrence, possible chronic pain, and transmission. Currently this is a two shot regimen - Yearly influenza immunization is recommended, and typically available beginning in mid-March - I highly encourage all who are able to complete an initial immunization series against COVID19, along with boosters as indicated by age or medical history - Consider obtaining an RSV immunization. For more information: https://www.cdc.g ov/vaccines/vpd/r sv/index.html Exercise recommendations: - It is recommended that you do daily aerobic (walking, bicycling, swimming) and resistance exercises (light weight lifting, resistance band stretching) for at least 30 minutes, most days of the week. - If you cannot walk, chair exercises for 10-15 minutes a day would help tremendously. - As little as 15-20 minutes exercise, in one or two sessions a day, is still very helpful to manage/improve your weight and overall health Diet recommendations: - Eat small portion meals, trying not to consume more than 1800 calories a day. - Try to eat not more than 2 servings of carbs (starches) with your meals. - Avoid soft drinks, including regular sodas, fruit juices, and sweetened tea. Drink water instead. - Eat plenty of green and leafy vegetables, including salads. [email or web address] Not available 01/09/2024 16:55:43 Reason for Referral [employer] Referral for Corneal foreign body Please contact patient for appt, thanks! Referring Physician: Odessa Watkins, Family Medicine, Encounter Date: 03/30/2024 Physical Therapist Referral for Pain in buttock he will call when ready for appt. Referring Physician: Odessa Watkins, [facility], Encounter Date: 03/16/2025 Results Created Date Observation Date Name Description Value Unit Range Abnormal Flag Note LastModifiedBy Organization Detail LastModifiedTime 06/21/20 23 06/21/2023 influ armando virus A + B + SARS- CoV-2 (COVI D19) Ag panel , rapid IA, upper respi rator y speci men Flu A negati ve Not Available In-Office Order Internal Use Only DO Not Attach Compendium DO Not Attach Compendium, Do Not Delete/merge, [id number] 06/21/2023 15:05:11 06/21/20 23 06/21/2023 influ armando virus A + B + SARS- CoV-2 (COVI D19) Ag panel , rapid IA, upper respi rator y speci men Flu B negati ve Not Available In-Office Order Internal Use Only DO Not Attach Compendium DO Not Attach Compendium, Do Not Delete/merge, [id number] 06/21/2023 15:05:11 06/21/20 23 06/21/2023 influ armando virus A + B + SARS- CoV-2 (COVI D19) Ag panel , rapid IA, upper respi rator y speci men Rapid SARS CoV 2 Ag, QL IA, respiratory specimen negati ve Not Available In-Office Order Internal Use Only DO Not Attach Compendium DO Not Attach Compendium, Do Not Delete/merge, [id number] 06/21/2023 15:05:11 03/04/20 25 03/02/2025 XR, hip + pelvi s, bilat eral No observ ation record ed[facility] [address], [place], [address], 03/16/2025 12:53:19 03/16/20 25 03/02/2025 XR, hip + pelvi s, bilat eral No observ ation record ed. [facility] [address], [place], [address], 03/16/2025 21:21:21 Result Notes None recorded. Problems Name Problem SNOMED Code Status Onset Date Resolution Date Notes Provider Name and Address Organization Details Recorded Time Low back pain 728574680 Completed 201310/31/2018 Location : None;Sev erity: Moderate ;Progres s: Stable;A dded By: Beatriz Stratton;Add to Current Problems : NO DEREK Baeza Attn: Diannnicanor arthur,[address] [facility], [place], [address], [facility] 9 15:14:30 Psychose xual dysfunct ion associat ed with inhibite d libido 534834686 Active 2013 Michael Child MD Attn: Rocky arthur,[address] [place], [place], [address] [place] [address] 2, [facility] 4 16:08:17 Anxiety state 983036930 Completed 201301/10/2014 Location : None;Sev erity: Moderate ;Progres s: Stable;A dded By: Elgin Murillo;Add to Current Problems : NO Michael Child MD Attn: Rocky jerson,[address] [facility], [place], [place], [address] [place] [address] 2, [facility] 2 13:52:58 Psoriasi s 4044842 Active 2015 Michael Child MD Attn: Rocky arthur,[address] [place], [place], [address] [place] [address] 2, [facility] 4 16:08:21 Body mass index 20-24 - normal 576223622 Active 2021 Michael Child MD Attn: Rocky arthur,[address] [place], [address], [facility] 2 13:50:05 History of polyp of colon 173079278 Active 2021 Colonosc opy / - 5 yrfu - Fedder Michael Child MD Attn: Rocky arthur,[address] [facility], [place], [address], [place] [facility] 2 13:52:15 Long-ter m drug therapy Active 2021 Michael Child MD Attn: Rocky arthur,[address] [facility], [place], [address], [place] [facility] 2 13:53:16 Anxiety 19694662 Active 2021 treated with proprano lol Michael Child MD Attn: Rocky arthur,[address] [facility], [place], [address], [place] [facility] 2 13:55:19 Skin lesion 17424748 Active 2021 Michael Child MD Attn: Rocky arthur,[address] [facility], [place], [address], [place] [facility] 2 16:37:24 Sinus bradycar mary 43176417 Active 2023 Michael Child MD Attn: Rocky arthur,[address] [facility], [place], [address], [place] [facility] 4 16:47:43 Arthriti s of left sacroili ac joint 50508811837 41933 Active 2023 Michael Child MD Attn: Rocky arthur,[address] [facility], [place], [address], [place] [facility] 4 16:54:39 Problem Notes None recorded. Procedures Surgical History Date Name Laterality Status Provider Name and Address Organization Details Recorded Time 07/21/19 19 decompression laminectomy completed DEREK Baeza Attn: Accounting,[address] [facility], [place], [address], [place] [facility] 10/31/2018 15:13:12 Imaging Results None recorded. Procedure Notes None recorded. Medical Equipment None Reported. Allergies Allergen ID Allergen Name Allergen Category Reaction Reaction Severity Criticality Documentation Date Start Date Code Code System Note Provider Name and Address Organization Details Recorded Time 96314 cephalexi n monohydra te medicatio n rash moderate Not available 07/04/20162015 60103 8 RxNorm React ion: rash; Sever ity: Moder ate; Comme nt: Aller gy Type: Aller gy; Not Available [facility] 7 03:50:20 Medications Name Sig Start Date Stop Date Status Note LastModified by Organization Details LastModified Time cyclobenz aprine 10 mg tablet Take 1 tablet as needed by oral route at bedtime. 07/03 completed Not Available Not Available Not Available prednison e 10 mg tablet Take 1 tablet by oral route as directed . 07/03 completed has not taken in a year Not Available Not Available Not Available sildenafi l 50 mg tablet TAKE 1 TABLET BY MOUTH ONCE DAILY active Not Available Not Available No t Available triamcino lone acetonide 0.5 % topical cream APPLY THIN LAYER TOPICALL Y TO THE AFFECTED AREA TWICE DAILY 06/21 completed Not Available Not Available Not Available azithromy jeff 250 mg tablet TAKE 2 TABLETS (500 MG) BY ORAL ROUTE ONCE DAILY FOR 1 DAY THEN 1 TABLET (250 MG) BY ORAL ROUTE ONCE DAILY FOR 4 DAYS 01/08 completed Not Available Not Available Not Available ofloxacin 0.3 % eye drops INSTILL 1 DROP INTO RIGHT EYE FOUR TIMES DAILY 02/03 completed Not Available Not Available Not Available tizanidin e 4 mg tablet 10/31 completed Not Available Not Available Not Available valacyclo vir 1 gram tablet Take 1 tablet every 8 hours by oral route for 7 days. 01/04 completed Not Available Not Available Not Available meloxicam 15 mg tablet TAKE 1 TABLET BY MOUTH EVERY DAY 10/31 completed Not Available Not Available Not Available prednison e 20 mg tablet Take 2 tablets every day by oral route for 7 days. 03/30 completed Not Available Not Available Not Available ciproflox acin 500 mg tablet Take 1 tablet every 12 hours by oral route for 10 days. 01/04 completed Not Available Not Available Not Available peg-elect rolyte solution 420 gram oral solution 01/04 completed Not Available Not Available Not Available tramadol 50 mg tablet TAKE 1 TABLET BY MOUTH EVERY 4 TO 6 HOURS NEEDED 06/21 completed Not Available Not Available Not Available Kenalog 40 mg/mL suspensio n for injection Take 1.5 mL by injectio n route. 05/30 completed charrism a Not Available Not Available Not Available oxycodone -acetamin ophen 5 mg-325 mg tablet 10/31 completed Not Available Not Available Not Available sulfaceta mide sodium 10 % eye drops INSTILL 1 DROP INTO AFFECTED EYE(S) BY OPHTHALM IC ROUTE EVERY 2-3 HOURS DURING THE DAY AND LESS FREQUENT LY AT NIGHT 04/10 completed Not Available Not Available Not Available cephalexi n 500 mg capsule one PO TID for 10 days 04/12 completed Not Available Not Available Not Available oseltamiv ir 75 mg capsule 01/04 completed Not Available Not Available Not Available tobramyci n 0.3 % eye drops INSTILL 1 DROP INTO AFFECTED EYE(S) BY OPHTHALM IC ROUTE EVERY 4 HOURS for 7 days 01/08 completed Not Available Not Available Not Available fluoromet holone 0.1 % eye drops,stephanie pension SHAKE LIQUID AND INSTILL 1 DROP IN RIGHT EYE THREE TIMES DAILY. SHAKE WELL BEFORE EACH USE 02/03 completed Not Available Not Available Not Available mupirocin 2 % topical ointment APPLY TOPICALL Y TO THE AFFECTED AREA TWICE DAILY FOR 2 WEEKS 06/21 completed Not Available Not Available Not Available gabapenti n 100 mg capsule 02/25 completed Not Available Not Available Not Available methylpre dnisolone 4 mg tablets in a dose pack Take 1 dose pk by oral route as directed . 01/04 completed Not Available Not Available Not Available propranol ol 20 mg tablet TAKE 1 TABLET BY MOUTH FOUR TIMES DAILY NEEDED FOR SITUATIO NAL ANXIETY active Not Available Not Available No t Available clobetaso l 0.05 % scalp solution APPLY TOPICALL Y TO THE SCALP AT NIGHT FOR 2 TO 3 WEEKS 06/21 completed Not Available Not Available Not Available clobetaso l-emollie nt 0.05 % topical cream APPLY TO THE AFFECTED AREA IN A THIN LAYER TWICE DAILY UP TO 2 WEEKS AT A TIME 01/04 completed Not Available Not Available Not Available rosuvasta tin 10 mg tablet TAKE 1 TABLET BY MOUTH EVERY DAY AT BEDTIME active Not Available Not Available No t Available ID NOW COVID-19 Test Kit TEST DIRECTED 04/10 completed Not Available Not Available Not Available Vitals Date Recorded Body height Body mass index (BMI) Body weight Body temperature Oxygen saturation Heart rate Systolic And Diastolic Provider Name and Address Organization Details Last Updated DateTime 4 177.8 cm 24.4 kg/m2 57851.7 g 100.2 [degF] 98 % 49 /min 125/79 mm[Hg] Danielle Talley MA [facility] 4 15:28:45 Date Recorded Systolic And Diastolic Provider Name and Address Organization Details Last Updated DateTime 02/03/2025 144/80 mm[Hg] Dorothy Baeza Attn: Accounting,[address] [facility], [place], [address], [facility] 02/03/2025 15:37:05 Date Recorded Body height Body mass index (BMI) Body weight Oxygen saturation Heart rate Body temperature Provider Name and Address Organization Details Last Updated DateTime 5 177.8 cm 24.3 kg/m2 32388.9 1 g 98 % 63 /min 98 [degF] Jojo Méndez MA [facility] 5 15:11:11 Date Recorded Body height Body mass index (BMI) Body weight Body temperature Oxygen saturation Heart rate Systolic And Diastolic Provider Name and Address Organization Details Last Updated DateTime 5 177.8 cm 24.8 kg/m2 80254.4 8 g 98.2 [degF] 96 % 55 /min 139/82 mm[Hg] Regla Astorga MA [facility] 5 09:51:34 Date Recorded Body height Body mass index (BMI) Body weight Body temperature Oxygen saturation Heart rate Systolic And Diastolic Provider Name and Address Organization Details Last Updated DateTime 4 177.8 cm 24.7 kg/m2 30677.9 9 g 97.2 [degF] 95 % 51 /min 148/87 mm[Hg] Danielle Talley MA [facility] 4 13:50:30 Date Recorded Body height Body mass index (BMI) Body weight Oxygen saturation Heart rate Body temperature Systolic And Diastolic Provider Name and Address Organization Details Last Updated DateTime 3 177.8 cm 24.7 kg/m2 54857.8 9 g 97 % 72 /min 97.8 [degF] 142/86 mm[Hg] Medina VENICE Barba [place] [facility] 3 15:16:24 Social History Question Answer Notes LastModified by Organizat ion Details LastModified Time Tobacco Smoking Status Never Smoker [place], [place] - [facility] 2016 15:24:18 Do You Have An Advance Directive? No Information n ot available 04/10/2022 Are You Blind Or Do You Have Difficulty Seeing? No Information n ot available 04/10/2022 What Is Your Level Of Caffeine Consumption? Moderate Information not available 04/10/2022 In The 14 Days Before Symptom Onset, Have You Had Close Contact With A Laboratory-confirm ed COVID-19 While That Case Was Ill? No Information n ot available 04/10/2022 In The 14 Days Before Symptom Onset, Have You Had Close Contact With A Person Who Is Under Investigation For COVID-19 While That Person Was Ill? No Information not available 04/10/2022 Have You Been To An Area Known To Be High Risk For COVID-19? No Information not available 04/10/2022 Are You Deaf Or Do You Have Serious Difficulty Hearing? No Information not available 04/10/2022 What Type Of Diet Are You Following? REGULAR Information n ot available 04/10/2022 What Was The Date Of Your Most Recent Tobacco Screening? 03/16/2025 [email or web address] Information not available 03/16/2025 How Many Children Do You Have? 1 Information not available 04/10/2022 What Is Your Relationship Status? Information not available 04/10/2022 Do You Use Your Seat Belt Or Car Seat Routinely? Yes Information not available 04/10/2022 Do You Have Smoke And Carbon Monoxide Detectors In Your Home? Yes Information not available 04/10/2022 How Much Tobacco Do You Smoke? No Information not available 05/05/2020 Do You Use Sunscreen Routinely? Yes Information not available 04/10/2022 Sex: Male Functional Status Question Answer Note LastModified by Organizat ion Details LastModified Time Do you use any illicit or recreational drugs? No Information not available 04/10/2022 What is your level of alcohol consumption? Moderate apricema Information not available 02/03/2025 Do you or have you ever used smokeless tobacco? Never used smokeless tobacco Information not available 05/05/2020 Are you currently employed? Yes Information not available 04/10/2022 Are you able to care for yourself independently? Yes Information not available 04/10/2022 Do you or have you ever used e-cigarettes or vape? Never used electronic cigarettes Information not available 05/05/2020 What is your exercise level? Moderate Information not available 04/10/2022 Mental Status Question Answer Note LastModified by Organization D etails LastModified Time Do you feel stressed (tense, restless, nervous, or anxious, or unable to sleep at night)? [id number] Information not available 04/10/2022 Family History Relationship Description Onset Age of this Age Resolved Age Notes LastModified by Organization Details LastModified Time Father Cerebrovascu lar accident 74 [email or web address] Not available 08/2018 09:06:00 Medical History Condition Response Muscle, Joint, or Bone Problems Y Skin Problems Y Immunizations Vaccine Type Date Status Note Provider Nam e and Address Organization Details Recorded Time COVID-19, mRNA, LNP-S, PF, 30 mcg/0.3 mL dose 1 completed Michael Child MD Attn: Accounting, [place], [address], [place] [facility] 04/10/2022 13:58:53 COVID-19, mRNA, LNP-S, bivalent, PF, 30 mcg/0.3 mL dose 2 completed Michael Child MD Attn: Accounting,[address] [place], [address], [place] [facility] 04/10/2022 14:00:18 COVID-19, mRNA, LNP-S, PF, 50 mcg/0.5 mL 3 completed Not Available [facility] 03/16/2025 09:40:58 COVID-19, mRNA, LNP-S, PF, 50 mcg/0.5 mL 4 completed Not Available [facility] 03/16/2025 09:40:58 Td (adult), 5 Lf tetanus toxoid, preservative free, adsorbed 2 completed Manasa Cabezas LPN null, [place] [facility] 11/29/2021 17:18:35 Past Encounters Encounter ID Performer Location Encounter Start Date Encounter Closed Date Diagnosis/Indication Diagnosis SNOMED-CT Code Diagnosis ICD10 Code Diagnosis IMO Codes Diagnosis Note [id number] Tim Snyder MD [facility] [address] [place] [address] 04/12/2016 14:50:21 04/12/2016 18:50:47 Sciatica 43665401 M54.32 [id number] Laquita Darden MD [facility] [address] [place] [address] 05/30/2016 15:13:04 06/04/2016 11:42:36 Degeneration of lumbar intervertebral disc 44681676 M51.36 [id number] Tim Snyder MD [facility] [address] [place] [address] 06/21/2016 10:56:55 06/26/2016 10:32:33 Degeneration of lumbar intervertebral disc 18354197 M51.36 we discussed future referal for [facility] ent with pain management and continued inversion table. [id number] Elgin Murillo MD [facility] [address] [place] [address] 08/02/2016 16:04:23 08/03/2016 10:06:10 Low back pain 489857382 M54.5 with spinal stenosis and spondylosi s Psoriasis 1854587 L40.9 Anxiety 62691519 F41.9 [id number] Elgin Murillo MD [facility] [address] [place] [address] 09/06/2016 16:10:46 09/08/2016 09:46:41 Mass of soft tissue 481761047 R22.9 [id number] Elgin Murillo MD [facility] [address] [place] [address] 07/03/2017 16:51:58 07/03/2017 17:30:27 Strain of flexor muscle of hip 610802526 S76.012A starting PT 07/10/16 for back pain [id number] Tim Snyder MD [facility] [address] [place] [address] 02/25/2018 09:46:51 02/27/2018 16:49:56 Spinal stenosis of lumbar region 49299382 M48.062 Adult heal th examination 357081440 Z00.00 Administra tion of diphtheria, pertussis, and tetanus vaccine 288405544 Z23 passes today due to appt. he has to get to. [id number] Elgin Murillo MD [facility] [address] [place] [address] 03/10/2018 16:52:48 03/11/2018 12:40:04 Herpes zoster 2592027 B02.9 [id number] Elgni Murillo MD [facility] [address] [place] [address] 10/31/2018 14:34:33 11/03/2018 08:53:28 Adult health examination 204248401 Z00.00 continue routine exercise and healthy diet, f/u yearly Screening for malignant neoplasm of prostate 746620169 Z12.5 Hyperlipid emia screening 821477744 Z13.220 order given for fasting lab. [id number] Elgin Murillo MD [facility] [address] [place] [address] 09/04/2019 14:08:00 09/07/2019 10:30:28 Persistent cough 238965751 R05 Increased frequency of urination 491060373 R35.0 Right medi al elbow tendinopathy 5033868442 56560 M77.01 [id number] Elgin Murillo MD [facility] [address] [place] [address] 01/05/2020 13:50:43 01/05/2020 16:26:44 Change in skin lesion 150823361 L98.9 [id number] Elgin Murillo MD [facility] [address] [place] [address] 05/05/2020 11:06:01 05/05/2020 14:53:11 Acute conjunctivitis 70000331 H10.31 avoid rubbing, watch for light sensitivit y or discharge. If worsening symptoms, purulent discharge, he will fill drop, otherwise with continue to monitor for worsening or new symptoms since he has had improvemen t overnight. [id number] Elgin Murillo MD [facility] [address] [place] [address] 11/29/2021 16:58:49 11/29/2021 18:26:00 Administration of diphtheria, pertussis, and tetanus vaccine [id number] Z23 [id number] Michael Child MD [facility] [address] [place] [address] 04/10/2022 15:30:48 04/11/2022 09:56:21 Adult health examination [id number] Z00.00 # Health Maintenanc e(>18) Depression screen: Denies feeling depressed or having little pleasure in doing things.(>3 5) Lipid disorders screening: Due for repeat screening( 50-75) Colorectal cancer screening: up-to-date . Repeat 2023.Vacci nesTdap: up-to-date .Influenza vaccine: plans to get in the next several weeks.(>65 , 19-65 DM/COPD, Ast/CHF) Pneumonia vaccine: N/A.Encour aged VZV.Just completed initial COVID series with bivalent vaccine last week.- Counseled on healthy diet and physical activity. 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 Long-term drug therapy 942365167 Z79.899 Check routine labwork for ongoing long-term medication use. Skin lesion 66569572 L98 .9 - history of psoriasis- slightly atypical on examinatio n, cannot rule out premaligna nt lesion- recommend dermatolog y evaluation - photo documentat ion recommende d- will give moderate potency topical corticoste roid Hyperlipid emia screening 499046087 Z13.220 Screening for malignant neoplasm of prostate 038756190 Z12.5 [id number] Laquita Darden MD [facility] [address] [place] [address] 06/21/2023 14:39:24 06/25/2023 08:59:31 Bacterial conjunctivitis 264336734 H10.9 contagion discussed Acute sinusitis 90937494 J01.90 Get plenty of rest, push fluids, vaporizer, saline nasal spray, robitussin for cough prn, tylenol for ANAND prn, call back if persistent colored nasal drainage or sputum, fevers, sinus pain, SOB. [id number] Michael Child MD [facility] [address] [facility] [address] 01/09/2024 15:06:14 01/10/2024 10:31:20 Adult health examination 561249373 Z00.00 # Health Maintenanc e(>18) Depression screen: Denies feeling depressed or having little pleasure in doing things.(>3 5) Lipid disorders screening: Due for repeat screening( 50-75) Colorectal cancer screening: scheduling with Dr. Azul Ramirez p: up-to-date .Influenza vaccine: plans to get in the next several weeks.(>65 , 19-65 DM/COPD, Ast/CHF) Pneumonia vaccine: N/A.Encour aged VZV.Activi ty/Exercis eCounseled on healthy diet and physical activity. 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 Long-term drug therapy 957217014 Z79.899 Check routine labwork for ongoing long-term medication use. Sinus bradycardia 218934 05 R00.1 stable, asymptomat ic, longstandi ng Arthritis of left sacroiliac joint [id number] 165058 M13.88 [id number] Laquita Darden MD [facility] [address] [facility] [place] [address] 03/30/2024 13:31:00 03/31/2024 10:39:30 Corneal foreign body 35029427 T15.01XA [id number] Laquita Darden MD [facility] [address] [place] [address] 02/03/2025 14:52:01 02/03/2025 16:41:43 Physical examination 9832663 Z00.00 [id number] continue routine exercise and healthy diet, f/u yearly. colonoscop y Dr. Bassett 02/16 with several polyps, repeat in 5 years recommende d, one year overdue. Tetanus UTD, suggested prevnar, seasonal flu and covid, and zoster series. Due for annual labs, order printed.Wi ll rech BP at home to make sure <140. Screening for malignant neoplasm of colon 401855708 Z12.11 170300 definitely has had one since 2019, will try to get those records at [facility]. Mom from colon cancer in her early 80s Mixed hyperlipidemia 267 804851 E78.2 46370 will fast for lab and get at [facility]. Orders printed. Screening for malignant neoplasm of prostate 109629596 Z12.5 908373 Anxiety 17968909 F41.9 controlled with prn propranolo l situationa lly Pain in buttock 49782584 6 M79.18 481824 used to run a mile nightly, now walks half mile nightly. No pain with weight bearing at all, only with sitting on his right side, on the bone. Using a pillow which has helped. Will start NSAID daily, donut pillow to continue and if not better, encouraged xray, which I printed. [id number] Laquita Darden MD [facility] [address] [facility] [place] [address] 03/16/2025 09:39:35 03/17/2025 10:28:49 Pain in buttock 737519269 M79.18 301232 used to run a mile nightly, now walks half mile nightly. No pain with weight bearing at all, only with sitting on his right side, on the bone. Using a donut pillow which has helped. Took NSAIDs daily, donut pillow to continue which helps. Xrays just mild arthritis. IS 25% better, not as intense pain. LIkely a bursitis/t endonitis/ soft tissue issue. Will add steroid short course. Printed RX for PT if not continued improvemen t to start, in preparatio n for ortho referral if PT doesn't help. Prehypertension 32799748 9 R03.0 7835415 Continue to monitor, avoid salt, heart healthy diet recommende d, regular exercise, moderation with alcohol. Also discussed regular daily long acting beta francesca (he takes short acting prn situationa l anxiety/pa lpitations ), and he declines for now. see BP log Health Concerns Section Related Observation LastModified by Organization Detai ls LastModified Time None Recorded Concern Status LastModified by Organization Details LastModified Time None Recorded Advance Directives Directive N: Payers Insurance Date Sequence Insurance Name Policy Number Policy Calloway Covered Member ID Calloway Member ID Guarantor Name 02/03/2025 1 [place] 112 Hima Harrisonesting [id number] Hima Interiano 03/15/2025 1 [place] 113 Hima Interiano [id number] Hima Interiano Notes Date Note Type Note Provider Name and Address Organization Details Recorded Time 023 text/ht ml Sinusitis/AllergyReported by PatientHPIFor associated symptoms, patient reportsnasal discharge from __ nostrils,sore throat,thick phlegm in throat,nasal passage blockage __, andeye itchingbut reportsno nasal discharge,no fever,no weight loss,no hemoptysis,no hematemesis,no difficulty breathing,no feeling of strangulation,no nausea or vomiting,no headache,no facial pain,no sinus pain,not constantly clearing the throat,no ear fullness,no nasal itching,no pain behind the eyes, andno skin itching(pink eye). For quality, patient reportshoarsenessandcongestedbut reportsno pain,no itching,no throbbing,minimal discomfort, andimproving. For alleviating factors, patient reportsnothing gives relief. For location, patient reportsfrontal. For onset/timing, patient reportsgradual onset,worse in am,worse in pm, andinitially started 1weeks ago(pink eye- within the last 24hrs). For duration, patient reportsconstant. For severity, patient reportsdoes not limit daily activities,no frequent breathing through the mouth,no nosebleeds (epistaxis),no snoring, andmoderate. For context, patient reportsno recent upper respiratory infection,no recent sick contacts,not worse with seasonal allergen exposure,not worse around animals,not worse around pollen,not worse around dust,not worse around molds,not worse with environmental exposure,not worse when mowing grass,not worse with certain foods, andnot worse with odors(possible sinus infection). For risk factors, patient reportsno current smoking or tobacco use,no history of smoking,no increased stress,no family history of allergies,no history of nasal trauma,no allergy to aspirin,no history of nasal polyps,no history of asthma,no chemotherapy,no dm,no hiv, andno immunodeficiency. For aggravating factors, patient reportsworse during an upper respiratory infection (a cold). For prior tests, (covid negative).10 days total, and now just really thick dark ND and with new red eyes with purulent drainage, no contacts.ROS as noted in the HPI Went over medications with pt pt states that he will need refills on todays visit. DEREK Baeza Attn: Accounting, [address] [facility], [place], [address], [facility] 06/21/2023 16:06:53 024 text/ht ml ROS as noted in the HPI ANNUAL HEALTH MAINTENANCE VISIT/SUBJECTIVE: Hima presents for routine yearly health maintenance visit. Last routine follow-up office visit: Last labwork: Patient reports consistent use of medications, without side effects or intolerances. [facility] concerns:[facility] [place] older brother diagnosed with prostate cancer in the past monthleft low back sharp pain, 4-6 months no known injury Health maintenance:Immunizations due: vzv, RSVColorectal cancer screenin55Tcx26 - Fedder - 5fuPSA: 2018AAA: not applicableLDCT: not applicable Alcohol: moderate. 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/ , dogNo family history of diabetes, hypertension, cardiovascular disease.Father with stroke in his 80sMother with colon cancer (decd) Situational anxiety- primarily related to public speaking, presentation- gets excellent relief of symptoms with propranolol Erectile dysfunctionPatient notes difficulty obtaining/maintaining an erection.Denies any psychosocial stressors, psychosexual or relationship problems with partner.Continues to get good effect with current use of sildenafil Psoriasishas been reasonably controlled until recently-Associate Automation Engineer/Nursing note reviewed.- Michael Child MD Attn: Accounting, [address] [facility], [place], [address], [facility] 01/09/2024 16:59:25 024 text/ht ml Itchy EyesReported by PatientItchy Eyes:For location, patient reportsright eye. For onset/timing, (started 3 days ago).ROS as noted in the HPI Pt started having itchy eye 3 days ago out of the blue. Feels like something in the eye. DEREK Baeza Attn: Accounting, [address] [facility], [place], [address], [facility] 03/30/2024 14:23:21 025 text/ht ml ROS as noted in the HPI DEREK Baeza Attn: Accounting, [address] , [place], [address], [facility] 02/03/2025 16:16:22 025 text/ht ml Generic HPI TemplateReported by PatientHPIFor location, (buttocks). For aggravating factors, (sitting). For alleviating factors, (using donut pillow).ROS as noted in the HPI pt says his pain is much better now, maybe 25-40% better, has been using the donut pillow and took 2 weeks of NSAID.pt wants to discuss his BP, about 50% of the time systolic in 140s, diastolic is always <90. DEREK Baeza Attn: Accounting, [address] , [place], [address], [facility] 03/16/2025 11:08:01
[2025-06-20 12:19] VITALS: BP 136/72; PULSE 66; RESP 18; TEMP 37.1; O2SAT 99
--- NOTE | 2025-06-20 12:45 | ED_ITS ---
HPI - Eye Problem General Chief complaint: Eye Problems Stated complaint: eye patient presents to the [facility] with complaints of drainage, irritation, and redness to right eye that began this morning upon waking. Patient does note some matting to the eyelashes but not matted shut. Denies any vision changes, headache, dizziness, nasal congestion, cough, or ear pain. Patient does report wearing glasses denies wearing contacts. Related Data Allergies Allergy/AdvReac Type Severity Reaction Status Date / Time cephalexin Allergy Intermediate RASH Verified 06/20/25 12:19 Review of Systems Constitutional: Constitutional: Reports as per HPI, Denies chills, Denies fatigue, Denies fever(s) and Denies weakness Eyes: Eyes: Reports as per HPI, Denies change in vision and Denies photophobia Comments: Redness, irritation, drainage right eye ENT: Reports as per HPI, Denies vertigo, Denies dizziness, Denies nasal congestion and Denies sore throat Cardiovascular: Cardiovascular: Reports no additional cardiovascular complaints Respiratory: Respiratory: Reports as per HPI, Denies chest congestion, Denies cough, Denies dyspnea and Denies wheezing Gastrointestinal: Gastrointestinal: Reports no additional gastrointestinal complaints Genitourinary: Genitourinary: Reports no additional male genitourinary complaints Musculoskeletal: Musculoskeletal: Reports as per HPI, Denies back pain and Denies myalgias Integumentary/Breasts: Skin/Breast: Reports as per HPI, Denies erythema, Denies rash and Denies skin ulcer Neurologic: Reports as per HPI, Denies vertigo, Denies dizziness, Denies headache(s), Denies numbness and Denies weakness Psychiatric: Psychiatric: Reports no additional psychiatric complaints Endocrine: Endocrine: Reports no additional endocrine complaints Hematologic/Lymphatic: Hematologic/Lymphatic: Reports no additional hematologic/lymphatic complaints Allergic/Immunologic: Allergic/Immunologic: Reports no additional allergic/immunologic complaints [facility] Past Medical History Medical History (Updated 06/20/25 @ 12:46 by Marlen De La O APRN, BAG FILLER-C) Colon polyp Arthritis Surgical History Surgical History Previous back surgery Social History Social History Smoking status: Former smoker Alcohol intake: current Drinks per week: 6 Alcohol use details: BEER Substance use: never Substance use type: does not use Living arrangements: with family Additional living arrangements comments: Gender identity (if verbalized by the patient): Male Spiritual care concerns: No Exam Const: General: healthy appearing and no acute distress Nutritional Appearance: well nourished Orientation/consciousness: patient oriented x3 Limitations: no limitations HENMT: Head: normal to inspection Ears: external ears normal Face/Nose/Sinus: Normal external nose present and Normal nares present Face and sinus: normal facial exam Eyes: Conjunctivae: conjunctival abnormality ( injection, exudate) right Pupils: Equal, round and reactive pupils present EOM: EOMs intact bilaterally Direct Ophthalmoscopy: no photophobia Neck: Neck: normal visual inspection and no lymphadenopathy Resp: Effort & Inspection: normal respiratory effort Auscultation: clear to auscultation bilaterally Cardio: Rate: regular rate Rhythm: regular rhythm Skin: General skin exam: normal color Rashes: no rashes Wounds: no wounds Neuro: General: patient oriented x3 and moves all extremities Cranial nerves: Yes Nystagmus not present Speech: normal speech Gait exam (Neuro): Normal gait present Psych: Mental Status: mental status grossly normal Affect: normal affect Attitude: cooperative Course Course Level of Care: Express Care Visit Vital Signs Vital signs: Vital Signs Temperature 98.8 F 06/20/25 12:19 Pulse Rate 66 06/20/25 12:19 Respiratory Rate 18 06/20/25 12:19 Blood Pressure 136/72 06/20/25 12:19 Pulse Oximetry 99 06/20/25 12:19 Oxygen Delivery Room Air 06/20/25 12:19 Temperature 98.8 F 06/20/25 12:19 Pulse Rate 66 06/20/25 12:19 Respiratory Rate 18 06/20/25 12:19 Blood Pressure 136/72 06/20/25 12:19 Pulse Oximetry 99 06/20/25 12:19 Oxygen Delivery Room Air 06/20/25 12:19 [facility] Narrative Medical decision making narrative: The patient was evaluated by myself in the express care. History is obtained from patient who is an independent historian and physical exam was performed. Available medical records were reviewed at this time. Exam findings show no acute concerns or changes; patient is non-toxic appearing and is in no distress. Patient is appropriate for outpatient treatment and follow-up. I have evaluated and discussed social determinants of health with the patient that could potentially impact subsequent diagnosis and treatment plans. Differential diagnosis and treatment plan were discussed with the patient. Patient agrees with discussion and after shared medical decision making agrees with plan of care. All questions were answered to the patient's satisfaction. Differential Diagnosis Differential Diagnosis: Conjunctivitis, sinusitis, upper respiratory infection Medical Records I have reviewed the following patient records and this information was taken into consideration when formulating the assessment and plan.: previous labs, previous ER visits, previous hospitalizations and previous clinic visits Discharge Plan Discharge Clinical Impression: Bacterial conjunctivitis Patient Disposition: Home Condition: Stable Instructions: Antibiotic Form, Conjunctivitis (ED) Additional Instructions: Your exam today shows Conjunctivitis, You have been given a prescription for eye drops. Use the eye drops as instructed. If you are not better in two (2) days, you need to follow up with an catering service manager. Do not rub the eye or put anything else in the eye, this can cause abrasions (scratches) on the eye or lead to vision loss. Also it is important not to touch the tube or tip of drops to the eye, as this can cause further infection. Wash your hands very well before instilling the medication. Handwashing can help prevent the spread of disease. Follow up with PCP in 7-10 days Return to ER for problems Contact [facility] if you need an Records Management Technician [] Patient Language: Togolese Prescriptions: New polymyxin B sulf-trimethoprim 10,000 unit- 1 mg/mL drops 1 drp RIGHT EYE Q3H 7 Days Qty: 10 0RF Rx Instructions: while awake; do not exceed 6 doses in 24 hours Follow-up/Referrals: Parent,DEREK Cruz [Primary Care Provider, Unknown] Time of Disposition: 12:47
== END 2025-06-20 12:50 | disposition home or self-care (01) ==
PROVIDERS: Emergency Provider Nurse Practitioner Family; PCP Physician Assistant
DX: H10.9 Unspecified conjunctivitis (principal); M19.90 Unspecified osteoarthritis, unspecified site; Z87.891 Personal history of nicotine dependence
CPT/HCPCS: 99213; G0463